=== PATIENT | female | born 1945 | race American Indian/Alaskan Native ===

== ENCOUNTER 2017-05-10 12:52 | Emergency (ER) | payer MEDICARE, OTHER ==
[2017-05-10] MEDS ORDERED: Sodium Chloride 0.9% 1,000 ML IV ONE (13:04)
[2017-05-10] MEDS ORDERED: Magnesium Sulfate/Water 2 GM in Premix Bag 1 BAG IV ONE (13:56)
[2017-05-10 13:57] VITALS: BP 144/46
--- NOTE | 2017-05-10 14:09 | EDM.PDOC ---
ED HPI GENERAL MEDICAL PROBLEM - General Chief Complaint: General Stated Complaint: [id number] DEHYDRATION Time Seen by Provider: 05/10/17 13:50 Source of Information: Reports: Patient History Limitations: Reports: No Limitations - History of Present Illness INITIAL COMMENTS - FREE TEXT/NARRATIVE: This 71 yo female patient reports to the ED with some dizziness and leg cramping. The patient reports she has been dehydrated 2-3 times over the past year, but does not know why. The patient reports she has been eating and drinking as normal. Onset: Today Duration: Constant, Getting Worse Location: Reports: Generalized Improves with: Reports: Other Worsens with: Reports: None Associated Symptoms: Reports: Weakness, Other (leg cramping) - Related Data Allergies Allergy/AdvReac Type Severity Reaction Status Date / Time No Known Allergies Allergy Verified 05/10/17 12:56 Home Meds: Home Meds Aspirin [Halfprin] 81 mg PO DAILY 05/10/17 [History] Cetirizine HCl 10 mg PO DAILY 05/10/17 [History] Gabapentin [Neurontin] 400 mg PO TID 05/10/17 [History] Hydrochlorothiazide 12.5 mg PO DAILY 05/10/17 [History] Ibuprofen 600 mg PO Q6HR PRN 05/10/17 [History] Insulin Detemir [Levemir Flextouch] 25 units SQ QAM 05/10/17 [History] Insulin Detemir [Levemir Flextouch] 30 units SQ QPM 05/10/17 [History] Isosorbide Mononitrate [Imdur] 30 mg PO BEDTIME 05/10/17 [History] Lisinopril 40 mg PO DAILY 05/10/17 [History] Omeprazole 20 mg PO DAILY 05/10/17 [History] amLODIPine Besylate [Amlodipine Besylate] 5 mg PO DAILY 05/10/17 [History] atorvaSTATin Calcium [Atorvastatin Calcium] 20 mg PO BEDTIME 05/10/17 [History] hydrOXYzine HCl [hydrOXYzine] 50 mg PO BEDTIME 05/10/17 [History] metFORMIN HCl [Metformin HCl] 1,000 mg PO BID 05/10/17 [History] Past Medical History Cardiovascular History: Reports: High Cholesterol, Hypertension Gastrointestinal History: Reports: Cholelithiasis Endocrine/Metabolic History: Reports: Diabetes, Type II - Past Surgical History GI Surgical History: Reports: Appendectomy, Cholecystectomy Social & Family History - Family History Family Medical History: Noncontributory - Tobacco Use Smoking Status *Q: Never Smoker Second Hand Smoke Exposure: No - Caffeine Use Caffeine Use: Reports: Coffee - Recreational Drug Use Recreational Drug Use: No ED ROS GENERAL - Review of Systems Review Of Systems: ROS reveals no pertinent complaints other than HPI. ED EXAM, GENERAL - Physical Exam Exam: See Below Exam Limited By: No Limitations General Appearance: Alert, WD/WN, Moderate Distress Eye Exam: Bilateral Eye: EOMI, Normal Inspection, PERRL Ears: Normal External Exam, Normal Canal, Hearing Grossly Normal, Normal TMs Nose: Normal Inspection, Normal Mucosa, No Blood Throat/Mouth: Normal Inspection, Normal Lips, Normal Teeth, Normal Gums, Normal Oropharynx, Normal Voice, No Airway Compromise Head: Atraumatic, Normocephalic Neck: Normal Inspection, Supple, Non-Tender, Full Range of Motion Respiratory/Chest: No Respiratory Distress, Lungs Clear, Normal Breath Sounds, No Accessory Muscle Use, Chest Non-Tender Cardiovascular: Normal Peripheral Pulses, Regular Rate, Rhythm, No Edema, No Gallop, No JVD, No Murmur, No Rub GI/Abdominal: Normal Bowel Sounds, Soft, Non-Tender, No Organomegaly, No Distention, No Abnormal Bruit, No Mass (Female) Exam: Deferred Rectal (Female) Exam: Deferred Back Exam: Normal Inspection, Full Range of Motion, NT Extremities: Normal Inspection, Normal Range of Motion, Non-Tender, Normal Capillary Refill, No Pedal Edema Neurological: Alert, Oriented, CN II-XII Intact, Normal Cognition, Normal Gait, Normal Reflexes, No Motor/Sensory Deficits Psychiatric: Normal Affect, Normal Mood Skin Exam: Warm, Dry, Intact, Normal Color, No Rash Lymphatic: No Adenopathy Course - Vital Signs Last Recorded V/S: Last Vital Signs Temp Pulse Resp BP 144/46 H 05/10/17 13:56 Pulse Ox - Orders/Labs/Meds Orders: Active Orders 24 hr Category Date Time Status Magnesium Sulfate/Water [Magnesium Sulfate 2 GM in Med 05/10/17 13:56 Ordered Water 50 ML] 2 gm Premix Bag 1 bag IV ONETIME Sodium Chloride 0.9% [Normal Saline] 1,000 ml Med 05/10/17 13:04 Ordered IV .BOLUS Medication Orders Sodium Chloride (Normal Saline) 1,000 mls @ 500 mls/hr IV .BOLUS ONE Stop: 05/10/17 15:03 Last Admin: 05/10/17 13:20 Dose: 500 mls/hr Magnesium Sulfate 2 gm/ Premix 50 mls @ 25 mls/hr IV ONETIME ONE Stop: 05/10/17 15:55 Labs: Laboratory Tests 05/10/17 05/10/17 05/10/17 Range/Units 13:04 13:12 13:12 WBC 9.7 (5.0-10.0) 10^3/uL RBC 4.22 (4.2-5.4) 10^6/uL Hgb 11.5 L (12.0-16.0) g/dL Hct 34.0 L (37.0-47.0) % MCV 80.6 (80-100) fL MCH 27.3 (27.0-34.0) pg MCHC 33.8 (33.0-35.0) g/dL Plt Count 247 (150-450) 10^3/uL Neut % (Auto) 64.6 (42.2-75.2) % Lymph % (Auto) 25.7 (20.5-50.1) % [place] % (Auto) 6.4 (2-8) % Eos % (Auto) 3.1 H (1.0-3.0) % Baso % (Auto) 0.2 (0.0-1.0) % Sodium (135-145) mmol/L Potassium (3.6-5.0) mmol/L Chloride (101-111) mmol/L Carbon Dioxide (21.0-31.0) mmol/L Anion Gap BUN (7-18) mg/dL Creatinine (0.6-1.3) mg/dL Est Cr Clr Drug Dosing mL/min Estimated GFR (MDRD) BUN/Creatinine Ratio Glucose (74-105) mg/dL Calcium (8.4-10.2) mg/dl Magnesium 1.5 L (1.8-2.5) mg/dL Total Bilirubin (0.2-1.0) mg/dL AST (10-42) IU/L ALT (10-60) IU/L Alkaline Phosphatase (42-121) IU/L Total Protein (6.7-8.2) g/dl Albumin (3.2-5.5) g/dl Globulin Albumin/Globulin Ratio Urine Color Yellow (YELLOW) Urine Appearance Clear (CLEAR) Urine pH 7.0 (5.0-9.0) Ur Specific [place] 1.015 (1.005-1.030) Urine Protein Negative (NEGATIVE) Urine Glucose (UA) Negative (NEGATIVE) Urine Ketones Negative (NEGATIVE) Urine Occult Blood Negative (NEGATIVE) Urine Nitrite Negative (NEGATIVE) Urine Bilirubin Negative (NEGATIVE) Urine Urobilinogen 0.2 (0.2-1.0) mg/dL Ur Leukocyte Esterase Moderate H (NEGATIVE) Urine RBC 0-5 /HPF Urine WBC 20-30 H (0-5/HPF) /HPF Ur Epithelial Cells Moderate H /HPF Urine Bacteria Few (0-FEW/HPF) /HPF Urine Mucus Few H /LPF 05/10/17 Range/Units 13:12 WBC (5.0-10.0) 10^3/uL RBC (4.2-5.4) 10^6/uL Hgb (12.0-16.0) g/dL Hct (37.0-47.0) % MCV (80-100) fL MCH (27.0-34.0) pg MCHC (33.0-35.0) g/dL Plt Count (150-450) 10^3/uL Neut % (Auto) (42.2-75.2) % Lymph % (Auto) (20.5-50.1) % [place] % (Auto) (2-8) % Eos % (Auto) (1.0-3.0) % Baso % (Auto) (0.0-1.0) % Sodium 127 L (135-145) mmol/L Potassium 3.9 (3.6-5.0) mmol/L Chloride 89 L (101-111) mmol/L Carbon Dioxide 28.0 (21.0-31.0) mmol/L Anion Gap 13.9 BUN 15 (7-18) mg/dL Creatinine 1.1 (0.6-1.3) mg/dL Est Cr Clr Drug Dosing 39.92 mL/min Estimated GFR (MDRD) 49 BUN/Creatinine Ratio 13.63 Glucose 159 H (74-105) mg/dL Calcium 9.7 (8.4-10.2) mg/dl Magnesium (1.8-2.5) mg/dL Total Bilirubin 0.6 (0.2-1.0) mg/dL AST 20 (10-42) IU/L ALT 12 (10-60) IU/L Alkaline Phosphatase 86 (42-121) IU/L Total Protein 7.8 (6.7-8.2) g/dl Albumin 3.9 (3.2-5.5) g/dl Globulin 3.9 Albumin/Globulin Ratio 1.00 Urine Color (YELLOW) Urine Appearance (CLEAR) Urine pH (5.0-9.0) Ur Specific [place] (1.005-1.030) Urine Protein (NEGATIVE) Urine Glucose (UA) (NEGATIVE) Urine Ketones (NEGATIVE) Urine Occult Blood (NEGATIVE) Urine Nitrite (NEGATIVE) Urine Bilirubin (NEGATIVE) Urine Urobilinogen (0.2-1.0) mg/dL Ur Leukocyte Esterase (NEGATIVE) Urine RBC /HPF Urine WBC (0-5/HPF) /HPF Ur Epithelial Cells /HPF Urine Bacteria (0-FEW/HPF) /HPF Urine Mucus /LPF Meds: Medications Generic Name Dose Route Start Last Admin Trade Name Freq PRN Reason Stop Dose Admin Sodium Chloride 1,000 mls @ 500 mls/hr 05/10/17 13:04 05/10/17 13:20 Normal Saline IV 05/10/17 15:03 500 mls/hr .BOLUS ONE Administration Magnesium Sulfate 2 gm/ Premix 50 mls @ 25 mls/hr 05/10/17 13:56 IV 05/10/17 15:55 ONETIME ONE Departure - Departure Time of Disposition: 15:40 Disposition: Home, Self-Care 01 Condition: Fair Clinical Impression: Dehydration, Hyponatremia, Hypomagnesemia Urinary tract infection Qualifiers: Urinary tract infection type: site unspecified Hematuria presence: without hematuria Qualified Code(s): N39.0 - Urinary tract infection, site not specified - Discharge Information Instructions: Muscle Cramps and Spasms, [id number], Dehydration, Adult, Hyponatremia, [id number], Hypomagnesemia, Urinary Tract Infection, Adult, Easy -to-Read Care Plan Goals: The patient was advised of the examination and lab results during the visit. The patient was given a liter of IV fluid and 2 grams of IV Magnesium while in the ED. The patient was discharged with a script for Macrobid (100 mg) to take 1 by mouth 2 times per day for 7 days. If the patient has any additional symptoms or concerns, the patient should follow-up with her primary care facility or return to the emergency department. - My Orders Last 24 Hours: My Active Orders 05/10/17 13:04 Sodium Chloride 0.9% [Normal Saline] 1,000 ml IV .BOLUS 05/10/17 13:56 Magnesium Sulfate/Water [Magnesium Sulfate 2 GM in Water 50 ML] 2 gm Premix Bag 1 bag IV ONETIME - Assessment/Plan Last 24 Hours: My Active Orders 05/10/17 13:04 Sodium Chloride 0.9% [Normal Saline] 1,000 ml IV .BOLUS 05/10/17 13:56 Magnesium Sulfate/Water [Magnesium Sulfate 2 GM in Water 50 ML] 2 gm Premix Bag 1 bag IV ONETIME
== END 2017-05-10 15:55 | disposition home or self-care (01) ==
LOC: DL.ED 12:52
DX: E87.1 Hypo-osmolality and hyponatremia (principal); E83.42 Hypomagnesemia; N39.0 Urinary tract infection, site not specified; E11.9 Type 2 diabetes mellitus without complications; I10 Essential (primary) hypertension; E78.00 Pure hypercholesterolemia, unspecified; Z79.899 Other long term (current) drug therapy; Z79.82 Long term (current) use of aspirin; Z79.4 Long term (current) use of insulin
CPT/HCPCS: 36415; 80053; 81001; 83735; 85025; 87086; 96361; 96365; 99284; J7030; 87088; 87186; J3475

== ENCOUNTER 2019-01-11 18:56 | Emergency (ER) | payer MEDICARE, OTHER ==
--- NOTE | 2019-01-11 19:44 | EDM.PDOC ---
ED HPI GENERAL MEDICAL PROBLEM - General Chief Complaint: General Stated Complaint: DIZZINESS, CONFUSION, WEAKNESS Time Seen by Provider: 01/11/19 19:44 Source of Information: Reports: Patient, Family History Limitations: Reports: No Limitations - History of Present Illness INITIAL COMMENTS - FREE TEXT/NARRATIVE: pt states was feeling unsteady and not good before eating tonight but felt worse afterwards. states pt is DM and has neuropathy in feet and they have been more swollen past few days. pt denies CP/SOB/SAINI but has been feeling bit confused today. felt like passing out but didn't fall hitting head. - Related Data Allergies Allergy/AdvReac Type Severity Reaction Status Date / Time No Known Allergies Allergy Verified 01/11/19 19:45 Home Meds: Home Meds Aspirin [Halfprin] 81 mg PO DAILY 05/10/17 [History] Cetirizine HCl 10 mg PO DAILY 05/10/17 [History] Ibuprofen 600 mg PO Q6HR PRN 05/10/17 [History] Insulin Detemir [Levemir Flextouch] 25 units SQ QPM 05/10/17 [History] Insulin Detemir [Levemir Flextouch] 35 units SQ QAM 05/10/17 [History] Isosorbide Mononitrate [Imdur] 30 mg PO BEDTIME 05/10/17 [History] Lisinopril 40 mg PO DAILY 05/10/17 [History] amLODIPine Besylate [Amlodipine Besylate] 5 mg PO DAILY 05/10/17 [History] atorvaSTATin Calcium [Atorvastatin Calcium] 20 mg PO BEDTIME 05/10/17 [History] hydrOXYzine HCl [hydrOXYzine] 50 mg PO BEDTIME 05/10/17 [History] hydroCHLOROthiazide [Hydrochlorothiazide] 12.5 mg PO DAILY 05/10/17 [History] metFORMIN HCl [Metformin HCl] 1,000 mg PO BID 05/10/17 [History] Insulin Aspart [NovoLOG] 10 units SUBCUT BIDMEALS 02/06/18 [History] Past Medical History HEENT History: Reports: Cataract Cardiovascular History: Reports: High Cholesterol, Hypertension Gastrointestinal History: Reports: Cholelithiasis [employer] History: Reports: Endocrine/Metabolic History: Reports: Diabetes, Type II - Past Surgical History HEENT Surgical History: Reports: Cataract Surgery GI Surgical History: Reports: Appendectomy, Cholecystectomy Social & Family History - Family History Family Medical History: Noncontributory - Tobacco Use Smoking Status *Q: Never Smoker Second Hand Smoke Exposure: No - Caffeine Use Caffeine Use: Reports: Coffee, Soda - Recreational Drug Use Recreational Drug Use: No ED ROS GENERAL - Review of Systems Review Of Systems: ROS reveals no pertinent complaints other than HPI. ED EXAM, GENERAL - Physical Exam Exam: See Below Exam Limited By: No Limitations General Appearance: Alert, WD/WN, Mild Distress, Other (discomfort) Eye Exam: Bilateral Eye: PERRL (pupils ER @ 4mm) Ears: Hearing Grossly Normal Throat/Mouth: Normal Voice, No Airway Compromise Head: Atraumatic Neck: Non-Tender, Full Range of Motion Respiratory/Chest: No Respiratory Distress Cardiovascular: Regular Rate, Rhythm GI/Abdominal: Soft, Non-Tender Extremities: Pedal Edema, Other (1+ bilateral) Neurological: Alert, Oriented, Normal Cognition, No Motor/Sensory Deficits Psychiatric: Flat Affect Skin Exam: Warm, Dry, Normal Color Lymphatic: No Adenopathy Course - Vital Signs Last Recorded V/S: Last Vital Signs Temp 35.9 C 01/11/19 20:22 Pulse 69 01/11/19 20:22 Resp 19 01/11/19 20:22 BP 141/50 H 01/11/19 20:22 Pulse Ox 100 01/11/19 20:22 - Orders/Labs/Meds Orders: Active Orders 24 hr Category Date Time Status EKG Documentation Completion [RC] URGENT Care 01/11/19 19:04 Active POC Glucose [Blood Glucose Check, Bedside] [RC] ONETIME Care 01/11/19 19:03 Active Head wo Cont [CT] Urgent Exams 01/11/19 19:43 Taken B-TYPE NATRIURETIC PEPTIDE,BNP [CHEM] Stat Lab 01/11/19 19:30 Received Labs: Laboratory Tests 01/11/19 01/11/19 Range/Units 19:30 19:30 WBC 9.2 (5.0-10.0) 10^3/uL RBC 4.76 (4.2-5.4) 10^6/uL Hgb 13.3 (12.0-16.0) g/dL Hct 40.9 (37.0-47.0) % MCV 85.9 (80-100) fL MCH 27.9 (27.0-34.0) pg MCHC 32.5 L (33.0-35.0) g/dL Plt Count 279 (150-450) 10^3/uL Neut % (Auto) 47.7 (42.2-75.2) % Lymph % (Auto) 41.3 (20.5-50.1) % [place] % (Auto) 6.4 (2-8) % Eos % (Auto) 4.3 H (1.0-3.0) % Baso % (Auto) 0.3 (0.0-1.0) % Sodium 134 L (135-145) mmol/L Potassium 3.9 (3.6-5.0) mmol/L Chloride 96 L (101-111) mmol/L Carbon Dioxide 28.0 (21.0-31.0) mmol/L Anion Gap 13.9 BUN 15 (7-18) mg/dL Creatinine 1.5 H (0.6-1.3) mg/dL Est Cr Clr Drug Dosing 28.41 mL/min Estimated GFR (MDRD) 34 BUN/Creatinine Ratio 10.00 Glucose 105 (74-105) mg/dL Calcium 9.4 (8.4-10.2) mg/dl Total Bilirubin 0.6 (0.2-1.0) mg/dL AST 22 (10-42) IU/L ALT 18 (10-60) IU/L Alkaline Phosphatase 89 (42-121) IU/L Troponin I < 0.02 (0.00-0.02) ng/ml Total Protein 8.3 H (6.7-8.2) g/dl Albumin 4.7 (3.2-5.5) g/dl Globulin 3.6 Albumin/Globulin Ratio 1.31 - Re-Assessments/Exams Free Text/Narrative Re-Assessment/Exam: 01/11/19 20:17 results discussed with pt who is feeling fine right now. Departure - Departure Time of Disposition: 20:17 Disposition: Home, Self-Care 01 Condition: Good Clinical Impression: Near syncope Diabetic neuropathy Qualifiers: Diabetes mellitus type: type 2 Diabetes mellitus complication detail: with other neurological complication Qualified Code(s): E11.49 - Type 2 diabetes mellitus with other diabetic neurological complication - Discharge Information Instructions: Syncope, [id number] Forms: ED Department Discharge Additional Instructions: 1) see Claribel tomorrow for MRI SCAN OF HEAD. 2) rest 3) recheck if there is any change or concern - My Orders Last 24 Hours: My Active Orders 01/11/19 19:03 POC Glucose [Blood Glucose Check, Bedside] [RC] ONETIME 01/11/19 19:04 EKG Documentation Completion [RC] URGENT 01/11/19 19:30 B-TYPE NATRIURETIC PEPTIDE,BNP [CHEM] Stat 01/11/19 19:43 Head wo Cont [CT] Urgent - Assessment/Plan Last 24 Hours: My Active Orders 01/11/19 19:03 POC Glucose [Blood Glucose Check, Bedside] [RC] ONETIME 01/11/19 19:04 EKG Documentation Completion [RC] URGENT 01/11/19 19:30 B-TYPE NATRIURETIC PEPTIDE,BNP [CHEM] Stat 01/11/19 19:43 Head wo Cont [CT] Urgent
[2019-01-11 19:57] LABS: ANION GAP 13.9; CHLORIDE,CL 96 mmol/L (101-111); SODIUM,NA 134 mmol/L (135-145)
[2019-01-11 20:24] VITALS: BP 141/50; PULSE 69
== END 2019-01-11 20:24 | disposition home or self-care (01) ==
LOC: DL.ED 18:56
DX: R55 Syncope and collapse (principal); E11.49 Type 2 diabetes mellitus with other diabetic neurological complication; I10 Essential (primary) hypertension; Z79.4 Long term (current) use of insulin; Z79.82 Long term (current) use of aspirin; Z79.899 Other long term (current) drug therapy; Z98.49 Cataract extraction status, unspecified eye; Z90.49 Acquired absence of other specified parts of digestive tract
CPT/HCPCS: 36415; 70450; 80053; 82962; 83880; 84484; 85025; 93005; 99285-25

== ENCOUNTER 2023-01-14 13:32 | Emergency (ER) | payer MEDICARE, OTHER ==
[2023-01-14 14:46] LABS: BASOPHILS PERCENT AUTO 0.5 % (0.0-1.0); EOSINOPHILS PERCENT AUTO 7.6 % (1.0-3.0); HEMATOCRIT 36.4 % (37.0-47.0); LYMPHOCYTES PERCENT AUTO 19.3 % (20.5-50.1); MEAN CORPUSCULAR HEMOGLOBIN 28.2 pg (27.0-34.0); MEAN CORPUSCULAR VOLUME 85.4 fL (80-100); MONOCYTES PERCENT AUTO 7.2 % (2-8); NEUTROPHILS PERCENT AUTO 65.4 % (42.2-75.2); PLATELET COUNT,PLT 171 10^3/uL (150-450); RED BLOOD CELL COUNT 4.26 10^6/uL (4.2-5.4); WHITE BLOOD CELL COUNT,WBC 6.2 10^3/uL (5.0-10.0)
[2023-01-14 15:26] LABS: A/G RATIO 0.9; ALBUMIN 3.4 g/dL (3.4-5.0); ANION GAP 11.8 mEq/L (7-13); BILIRUBIN TOTAL 0.5 mg/dL (0.2-1.0); CALCIUM 10.1 mg/dL (8.5-10.1); CREATININE 2.18 mg/dL (0.55-1.02); EST CRCL DRUG DOSING (CG) 18.37 mL/min; MAGNESIUM 1.6 mg/dL (1.8-2.4); POTASSIUM,K 4.8 mmol/L (3.5-5.1); PROTEIN TOTAL,TP 7.3 g/dL (6.4-8.2); TSH ULTRASENSITIVE 2.27 uIU/mL (0.36-3.74)
[2023-01-14 15:28] LABS: BILIRUBIN,URINE MODERATE (NEGATIVE); COLOR,URINE YELLOW (YELLOW); GLUCOSE,URINE 100 (NEGATIVE); KETONES,URINE TRACE (NEGATIVE); LEUKOCYTE ESTERASE,URINE LARGE (NEGATIVE); NITRITE,URINE POSITIVE (NEGATIVE); OCCULT BLOOD,URINE NEGATIVE (NEGATIVE); PROTEIN,URINE 100 (NEGATIVE)
[2023-01-14 15:29] LABS: APPEARANCE,URINE SLIGHTLY CLOUDY (CLEAR)
[2023-01-14 15:44] LABS: BACTERIA,URINE MODERATE /HPF (0-FEW/HPF); EPITHELIAL CELLS,URINE FEW /HPF (NOT SEEN); RBC,URINE 0-5 /HPF (0-5)
[2023-01-14] MEDS ORDERED: Sodium Chloride 0.9% 1,000 ML IV ONE (15:58)
[2023-01-14] MEDS ORDERED: cefTRIAXone 1 GM Vial IVPUSH ONE (15:59)
[2023-01-14 16:57] VITALS: BP 150/57; PULSE 71
== END 2023-01-14 16:53 | disposition home or self-care (01) ==
LOC: DL.ED 13:32
DX: N39.0 Urinary tract infection, site not specified (principal); I10 Essential (primary) hypertension; E78.00 Pure hypercholesterolemia, unspecified; E11.9 Type 2 diabetes mellitus without complications; Z79.4 Long term (current) use of insulin; Z79.84 Long term (current) use of oral hypoglycemic drugs; Z79.82 Long term (current) use of aspirin; Z79.899 Other long term (current) drug therapy
CPT/HCPCS: 36415; 71046; 80053; 81001; 83605; 83735; 84145; 84443; 84484; 85025; 87086; 87088; 87186; 96374; 99284; 99284-25; J0696

== ENCOUNTER 2023-07-20 08:49 | Emergency (ER) | payer MEDICARE, OTHER ==
[2023-07-20] MEDS: Iopamidol 755 Mg/ML 100 ML Bottle IVPUSH ONE (08:18)
[2023-07-20 08:19] LABS: BASOPHILS PERCENT AUTO 0.3 % (0.0-1.0); EOSINOPHILS PERCENT AUTO 3.9 % (1.0-3.0); HEMATOCRIT 34.8 % (37.0-47.0); HEMOGLOBIN 11.3 g/dL (12.0-16.0); LYMPHOCYTES PERCENT AUTO 30.2 % (20.5-50.1); MEAN CORPUSCULAR HEMOGLOBIN 28.1 pg (27.0-34.0); MEAN CORPUSCULAR HGB CONC 32.5 g/dL (33.0-35.0); MEAN CORPUSCULAR VOLUME 86.6 fL (80-100); MONOCYTES PERCENT AUTO 7.2 % (2-8); NEUTROPHILS PERCENT AUTO 58.4 % (42.2-75.2); PLATELET COUNT,PLT 219 10^3/uL (150-450); RED BLOOD CELL COUNT 4.02 10^6/uL (4.2-5.4); WHITE BLOOD CELL COUNT,WBC 6.4 10^3/uL (5.0-10.0)
[2023-07-20 08:39] LABS: ALBUMIN 3.5 g/dL (3.4-5.0); ANION GAP 9.2 mEq/L (7-13); BLOOD UREA NITROGEN,BUN 35 mg/dL (7-18); BUN/CREATININE RATIO 19.9 (No establ ref range); CALCIUM 9.7 mg/dL (8.5-10.1); CARBON DIOXIDE,CO2 29 mmol/L (21-32); CHLORIDE,CL 104 mmol/L (98-107); CREATININE 1.76 mg/dL (0.55-1.02); GLUCOSE RANDOM 126 mg/dL (70-99); POTASSIUM,K 4.2 mmol/L (3.5-5.1); SODIUM,NA 138 mmol/L (136-145)
[2023-07-20 08:40] LABS: ALANINE AMINOTRANSFERASE,ALT 13 U/L (14-59); ALKALINE PHOSPHATASE 81 U/L (46-116); ASPARTATE AMNIOTRANSFERASE,AST 14 U/L (15-37); BILIRUBIN TOTAL 0.3 mg/dL (0.2-1.0); ESTIMATED GFR 29 mL/min (>=60)
[2023-07-20 08:54] LABS: INR 0.9 (0.9-1.2); PROTHROMBIN TIME 9.7 SEC (9.0-12.0)
[2023-07-20 09:24] LABS: APPEARANCE,URINE CLEAR (CLEAR); BILIRUBIN,URINE NEGATIVE (NEGATIVE); GLUCOSE,URINE NEGATIVE (NEGATIVE); KETONES,URINE NEGATIVE (NEGATIVE); LEUKOCYTE ESTERASE,URINE NEGATIVE (NEGATIVE); NITRITE,URINE NEGATIVE (NEGATIVE); OCCULT BLOOD,URINE NEGATIVE (NEGATIVE); PROTEIN,URINE NEGATIVE (NEGATIVE); UROBILINOGEN,URINE 0.2 mg/dL (0.2-1.0)
[2023-07-20 09:25] LABS: COLOR,URINE STRAW (YELLOW)
[2023-07-20 09:28] LABS: AMPHETAMINES,URINE NEGATIVE (NEGATIVE); BARBITURATES,URINE NEGATIVE (NEGATIVE); BENZODIAZEPINE,URINE NEGATIVE (NEGATIVE); MDMA (ECSTASY), URINE NEGATIVE (NEGATIVE); METHADONE,URINE NEGATIVE (NEGATIVE); METHAMPHETAMINES,URINE NEGATIVE (NEGATIVE); OPIATES,URINE NEGATIVE (NEGATIVE); OXYCODONE,URINE NEGATIVE (NEGATIVE); PHENCYCLIDINE,URINE NEGATIVE (NEGATIVE); TCA,URINE NEGATIVE (NEGATIVE)
[2023-07-20] MEDS: Dextrose 5%-0.9% NaCl 1,000 ML IV SCH (09:44)
[2023-07-20] MEDS: Sodium Chloride 0.9% 10 ML Syringe FLUSH PRN (09:45)
[2023-07-20] MEDS: Aspirin 81 MG Tab.Chew PO ONE (09:55)
== END 2023-07-20 10:10 ==
LOC: DL.ED 08:49
DX: I63.9 Cerebral infarction, unspecified (principal); I10 Essential (primary) hypertension; E78.00 Pure hypercholesterolemia, unspecified; E11.9 Type 2 diabetes mellitus without complications; Z90.49 Acquired absence of other specified parts of digestive tract; Z79.4 Long term (current) use of insulin; Z79.82 Long term (current) use of aspirin; Z79.84 Long term (current) use of oral hypoglycemic drugs; Z79.899 Other long term (current) drug therapy
CPT/HCPCS: 36415; 70450; 70496; 70498; 71045; 80053; 80305-QW; 81003; 82947; 83605; 83735; 84484; 85025; 85610; 93005; 93010; 96360; 99285; 99285-25; A9270-GY; J3490; J7042; Q9967